=== PATIENT | male | born 1950 | race Caucasian/White ===

== ENCOUNTER 2017-05-06 21:16 | Inpatient (IN) | payer MEDICARE ==
[2017-05-06 21:38] LABS: #Eosinphils 0.2 thou/uL (0.0-0.7); #Lymphocytes 1.9 thou/uL (1.20-3.40); #Neutrophils 10.5 thou/uL (1.40-6.50); %Basophils 0.2 % (0.0-1.0); %Eosinophils 1.7 % (0.0-10.0); %Lymphocytes 13.7 % (21.0-51.0); %Neutrophils 77.5 % (42.0-75.0); Mean Corpuscular HGB CONC 33.7 g/dL (32.0-36.0); Mean Corpuscular Hemoglobin 31.7 pg (27.0-31.0); Mean Platelet Volume 7.4 fL (7.4-10.4); Platelet Count 226 thou/uL (130-400); RBC Distribution Width 12.3 % (11.5-14.5); Red Blood Cell (RBC) Count 5.05 mill/uL (4.70-6.10); White Blood Cell (WBC) Count 13.6 thou/uL (4.8-10.8)
[2017-05-06 21:43] LABS: INR-International Normal Ratio 1.2; Prothrombin Time 15.2 SEC (12.0-14.7)
[2017-05-06 21:44] LABS: Bilirubin Negative (Negative); Blood, Urine Moderate (Negative); Clarity CLOUDY (Clear); Glucose, Urine (Dipstick) Negative (Negative); Leukocyte Negative (Negative); Nitrite Negative (Negative); Protein, Urine (Dipstick) Trace mg/dL (Neg-Trace); Urobilinogen 0.2 mg/dL (0.2-1.0); pH, Urine 5.5 (5.0-9.0)
[2017-05-06 21:44] LABS: PTT 27.7 SEC (22.9-36.1)
[2017-05-06 21:46] LABS: Bacteria/HPF None Seen HPF (None Seen); RBC/HPF 21-50 HPF (0-3); Squamous Epithelial 0-3 HPF (0-3); WBC/HPF 0-3 HPF (0-3)
[2017-05-06] MEDS ORDERED: Ketorolac Tromethamine 30 MG/ML VIAL ONE (21:46)
[2017-05-06 21:49] LABS: Pathc Cast-AUWi Flag 4.47 (0-2.49)
--- NOTE | 2017-05-06 21:49 | RAD ---
AP VIEW CHEST: INDICATIONS: Emergency examination. Chest pain. COMPARISON: None. FINDINGS: The lungs are clear. The cardiomediastinal silhouette appears within normal limits. There are vascu lar calcifications involving the aortic arch. The patient is slightly rotated, limited the exam. No pleural effusion or pneumothorax is evident. No definite acute osseous abnormality is noted. There is a suggested healed deformity involving the right proximal humerus. IMPRESSION: No definite acute cardiopulmonary abnormality. POS: EMMIE
[2017-05-06 21:58] LABS: Hyaline Casts/LPF 4-6 HYALINE CAST LPF (0-3 Hyaline)
[2017-05-06 22:02] LABS: ALT (SGPT) 28 U/L (8-55); AST (SGOT) 36 U/L (5-34); Albumin 3.7 g/dL (3.4-4.8); Alkaline Phosphatase 89 U/L (40-150); Anion Gap 15 mmol/L (10-20); BUN (Urea Nitrogen) 29 mg/dL (8.4-25.7); Bilirubin, Total 1.1 mg/dL (0.2-1.2); Calc. Creatinine Clearance 0 mL/min (70-130); Calcium 8.8 mg/dL (7.8-10.44); Carbon Dioxide 21 mmol/L (23-31); Chloride 105 mmol/L (98-107); Estimated GFR-MDRD 40; Globulin 3.2 g/dL (2.4-3.5); Glucose 189 mg/dL (80-115); Potassium 4.5 mmol/L (3.5-5.1); Protein, Total 6.9 g/dL (5.8-8.1); Sodium 136 mmol/L (136-145)
[2017-05-06] MEDS ORDERED: Acetaminophen 1,000 MG in Premix Bag 1 BAG IVPB SCH (22:15)
--- NOTE | 2017-05-06 22:26 | CT ---
CT OF THE BRAIN WITHOUT CONTRAST: INDICATIONS: History of altered mental status and vomiting. COMPARISON: Prior exam dated 01/11/2016. FINDINGS: Post surgical change involving the right frontal skull and skull base appears similar. Encephalomala rommel involving the right frontal lobe is similar appearing. The small lacunar infarct involving the l eft cerebellar hemisphere is stable. Mild chronic small vessel white matter ischemic change is simil ar. No definite acute infarct, hemorrhage, or hydrocephalus is present. IMPRESSION: No acute intracranial abnormality demonstrated. POS: ADILENE
[2017-05-06] MEDS ORDERED: Azithromycin 250 MG TAB PO SCH (22:30)
[2017-05-07] MEDS ORDERED: Norepinephrine 8 MG/250 ML BAG IVPB PRN (00:40)
[2017-05-07] MEDS ORDERED: Hydrocortisone Sod Succ/PF 100 mg/2 ml Vial ONE (01:45)
[2017-05-07 01:46] LABS: Lactic Acid 3.4 mmol/L (0.5-2.2)
[2017-05-07] MEDS ORDERED: Ondansetron ODT 4 MG TAB SL PRN (02:24)
[2017-05-07] MEDS ORDERED: Ondansetron HCl/PF 4 MG/2 ML Vial IVP PRN ×2 (02:24→02:40)
[2017-05-07] MEDS ORDERED: Acetaminophen 325 MG TAB PO PRN ×2 (02:24→02:40)
[2017-05-07] MEDS ORDERED: Sodium Chloride 0.9% 1,000 ML IV SCH ×2 (02:24→04:30)
[2017-05-07] MEDS ORDERED: HYDROcodone/Acetaminophen 10/325 mg Tablet PO PRN (02:40)
[2017-05-07] MEDS ORDERED: Dextrose 50% Abboject 50 ML SYRINGE SLOW IVP PRN ×2 (02:40→14:10)
[2017-05-07] MEDS ORDERED: HYDROcodone/Acetaminophen 5/325 mg Tablet PO PRN (02:40)
[2017-05-07] MEDS ORDERED: Ondansetron ODT 4 MG TAB PO PRN (02:40)
[2017-05-07] MEDS ORDERED: Dextrose 5% in Water 1,000 ML IV PRN ×2 (02:40→14:10)
[2017-05-07 03:34] VITALS: BMI 31.2
[2017-05-07] MEDS: Enoxaparin Sodium 30 MG/0.3 ML SYRINGE SC SCH (04:02)
[2017-05-07] MEDS: HumaLOG 300 UNITS/3 ML VIAL SC PRN ×5 (04:07→21:59)
[2017-05-07] MEDS ORDERED: Norepinephrine 8 MG/0.9% NS 250 ML IVPB SCH (04:30)
[2017-05-07 04:32] LABS: #Eosinphils 0.2 thou/uL (0.0-0.7); #Lymphocytes 0.8 thou/uL (1.20-3.40); #Monocytes 0.7 thou/uL (0.11-0.59); #Neutrophils 8.2 thou/uL (1.40-6.50); %Basophils 0.2 % (0.0-1.0); %Eosinophils 1.5 % (0.0-10.0); %Lymphocytes 8.2 % (21.0-51.0); %Monocytes 7.1 % (0.0-10.0); Hemoglobin 14.2 g/dL (14.0-18.0); Mean Corpuscular HGB CONC 33.2 g/dL (32.0-36.0); Mean Corpuscular Hemoglobin 31.1 pg (27.0-31.0); Mean Corpuscular Volume 93.6 fl (80.0-94.0); Mean Platelet Volume 7.4 fL (7.4-10.4); Platelet Count 193 thou/uL (130-400); RBC Distribution Width 12.1 % (11.5-14.5); Red Blood Cell (RBC) Count 4.57 mill/uL (4.70-6.10); White Blood Cell (WBC) Count 9.9 thou/uL (4.8-10.8)
[2017-05-07 04:49] LABS: ALT (SGPT) 37 U/L (8-55); AST (SGOT) 60 U/L (5-34); Albumin 2.9 g/dL (3.4-4.8); Alkaline Phosphatase 80 U/L (40-150); Anion Gap 13 mmol/L (10-20); BUN (Urea Nitrogen) 30 mg/dL (8.4-25.7); Bilirubin, Total 1.5 mg/dL (0.2-1.2); Calc. Creatinine Clearance 58 mL/min (70-130); Calcium 7.4 mg/dL (7.8-10.44); Carbon Dioxide 15 mmol/L (23-31); Chloride 113 mmol/L (98-107); Estimated GFR-MDRD 42; Globulin 2.4 g/dL (2.4-3.5); Glucose 236 mg/dL (80-115); Potassium 5.2 mmol/L (3.5-5.1); Protein, Total 5.3 g/dL (5.8-8.1); Sodium 136 mmol/L (136-145)
[2017-05-07] MEDS: Levothyroxine Sodium 100 MCG TAB PO SCH (05:19)
[2017-05-07] MEDS: metroNIDAZOLE 500 MG in Premix Bag 1 BAG IVPB SCH ×4 (05:19→23:01)
[2017-05-07] MEDS ORDERED: Piperacillin/Tazobactam 3.375 GM in Sodium Chloride 0.9% 100 ML IVPB SCH (06:00)
--- NOTE | 2017-05-07 07:14 | HP ---
DATE OF ADMISSION: 05/07/2017 TIME OF SERVICE: 0100 CHIEF COMPLAINT: Altered mental status, fever and vomiting. HISTORY OF PRESENT ILLNESS: Mr. 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 The patient was in normal state of health, Sunday evening, 05/05/17, was in a normal state and eati ng dinner normally, on the morning of 05/06/2017, the patient became nauseated, over several hours eldridge d a few episodes of vomiting, unable to keep anything down. The patient was acting tired and took a nap on the couch, later that afternoon after the vomiting resolved and about 3-4 hours prior to admis cole, which was about 3-4 hours prior to presentation, the son went to check on his dad, and noticed that he was kind of staring off into space and not really responding. He became concerned and called EMS. ER noted that the patient was febrile up to 101.3, and after presentation was looking septic and was resuscitated per protocol. Despite getting adequate fluids, the patient had down trending blood pres sure and got a central venous line placed and was started on Levophed. We were called for transfer o f admission orders from the floor by over to the CCU. On my arrival, the patient is awake and alert. He is responsive. He is very hard of hearing, but do es respond appropriately. His son is at the bedside. Per the son, his last dose of regular medication was on 05/05/2017, he was unable to keep any medicat ions down on 05/06/2017, and thus the patient has been off of his oral medications for almost 48 hour s. He has had intermittent fevers here in the Emergency Department, but the vomiting has resolved. No G I bleeding, no chest pain, denies any shortness of breath. Currently, he is on 8 mcg of Levophed with a mean arterial pressure around 70-75. PAST MEDICAL HISTORY: 1. Hypothyroidism. 2. Diabetes mellitus type 2. PAST SURGICAL HISTORY: Include a pituitary tumor removal in 1983. He has been on levothyroxine and prednisone since. Liver transplant in 03/2014, Prograf was added. He had bilateral cataract replace ment. HOME MEDICATIONS: 1. Levothyroxine 100 mcg a day. 2. Metformin 1000 mg p.o. b.i.d. 3. Prednisone 5 mg a day. 4. Prograf 0.5 mg p.o. b.i.d. Again, please note the patient has been off of all these medications since late 05/04/2017 early 04/08. ALLERGIES: IODINE. FAMILY HISTORY: Negative for clotting or bleeding disorder, no immune dysfunction. SOCIAL HISTORY: Negative for habits x3. His son, Guero Skinner at [phone], is his next of kin and the surrogate decision maker should the patient become unable. At this time the current request is full code. REVIEW OF SYSTEMS: A 10-point review of systems was performed, negative for all other systems except stated per HPI. PHYSICAL EXAMINATION: VITAL SIGNS: Temperature current 101.1, temperature max 101.3, pulse on arrival was 123, now down to 101, blood pressure had trended down to 95/60s, currently at 128/71. Respiratory rate in the 30s, s atting 94-95% on room air. GENERAL: He is awake. He is alert. He is a chronically ill appearing, but in no acute distress. Laura laird is a well-developed, well-nourished white male. HEENT: Normocephalic, atraumatic. Pupils equal and reactive to light bilaterally, mucous membranes are moist. There are no visible lesions or thrush. The patient does look a little puffy. NECK: Supple, without lymphadenopathy, JVD, or thyromegaly. He has good range of motion. LUNGS: Clear to auscultation bilaterally. Good air movement. Excellent chest excursion symmetrical ly. He has no wheezes, no rales, no rhonchi. No prolonged expiratory phase. CARDIOVASCULAR: He is tachycardic, regular. Normal S1 and S2. I did not appreciate murmurs. ABDOMEN: Soft, it is nontender, nondistended. He has normoactive bowel sounds present in all 4 quad rants. There is no rebound, rigidity or guarding. EXTREMITIES: No cyanosis, no clubbing with trace bilateral lower extremity edema. He has 2+ at dors genie pedis and posterior tibial pulses as well as a bilateral radial pulses. SKIN: Otherwise, warm, moist and well perfused. He has no other rashes or lesions. MUSCULOSKELETAL: Normal to inspection. NEUROLOGIC: Alert, awake, he is very hard of hearing, but has normal speech. LABORATORY DATA: Sodium 136, potassium 4.0, chloride 105, bicarb 21, BUN 29, creatinine 1.72 with an unknown baseline. Calcium of 8.2, glucose 159. Liver functions normal. CBC showed a white count o f 13.6 with normal differential, hemoglobin 16.0, hematocrit of 47.4, platelet count 226,000. Urinal ysis showed moderate blood and 21-50 red cells after Quintanilla trauma. No bacteria or white blood cells. Flu screen was negative. Lactic acid elevated at 3.5. RADIOGRAPHIC STUDIES: Brain CT negative for acute intracranial abnormality and chest x-ray showed no acute cardiopulmonary disease. ASSESSMENT AND PLAN: 1. Adrenal crisis. The patient was doing fine on admission, but over the last several hours has had a decline in blood pressure. The patient is chronically steroid dependent and it was abruptly stopp ed. I think he might be in acute renal insufficiency. I have requested a 100 mg of IV Solu-Cortef, we will continue that q.8h. for 48 hours and transition back to p.o. prednisone. After getting the d ose, the patient was transferred to the ICU. His blood pressure improved and weaning off of Levophed was begun. 2. Hypothyroidism secondary to hypopituitarism on replacement, we will continue. 3. Diabetes mellitus type 2. We will hold metformin and use sliding scale insulin only. 4. Metabolic encephalopathy seems to have resolved. The patient is currently at baseline per the so n. 5. Septic shock: The patient certainly does meet septic shock criteria. He is febrile, tachycardic , hypotensive despite IV fluid resuscitation adequately and requiring pressors, he has evidence of in creased lactic acid. I think likely the patient had an acute gastroenteritis and became acutely dehy drated. Due to the physiologic stress, the patient needs to be on stress dose steroids and had not b een started and, in fact, has been off of all of the steroids. Therefore, I think getting him on Krys u-Cortef will help profoundly. I will monitor his response.
--- NOTE | 2017-05-07 08:08 | RAD ---
RADIOGRAPH CHEST 1 VIEW: DATE: 05/07/17. TIME: 12:26 a.m. HISTORY: A 67-year-old male status post central line placement. COMPARISON: 05/06/17, 9:27 p.m. FINDINGS: There is no air space density, pulmonary edema, or pneumothorax. The lateral costophrenic angles are sharp. There is a new vertically descending central vascular catheter from the right neck, with dis nadege tip overlying the upper portion of the SVC. IMPRESSION: 1. No acute pulmonary findings. 2. Interval placement of right-sided central vascular catheter without pneumothorax. anahi [] POS: ADILENE
[2017-05-07] MEDS ORDERED: Vancomycin HCl 1 GM in Premix Bag 1 BAG IVPB SCH (09:00)
[2017-05-07] MEDS ORDERED: Famotidine 20 MG TAB PO SCH (09:00)
[2017-05-07] MEDS: Tacrolimus 0.5 MG CAP PO SCH ×2 (09:01→21:58)
--- NOTE | 2017-05-07 11:25 | CON ---
DATE OF CONSULTATION: 05/07/2017 SERVICE: Pulmonary Medicine REASON FOR CONSULTATION: Agitation. HISTORY OF PRESENT ILLNESS: The patient is a 67-year-old white male with past medical history signif icant for liver transplantation. He was in his usual state of health when he ultimately developed in creasing altered mentation. He had a fever. He presented to the Emergency Department, but did not d emonstrate any significant focalizing symptoms that would be suggestive of where his infection is com ing from. He was started on some empiric antibiotics. He got 5 liters of fluid and was initiated on some Levophed. Overnight, this was titrated off. His urine output picked up. Because of severe de afness, he cannot understand absolutely anything that I am asking him. As such, I cannot obtain any additional elements of the history and everything else is obtained from the medical record. PAST MEDICAL HISTORY: 1. Type 2 diabetes mellitus. 2. Hypothyroidism. PAST SURGICAL HISTORY: 1. Liver transplantation in 2013. 2. Bilateral cataract replacement. 3. Pituitary tumor excision in 1983. FAMILY HISTORY: Noncontributory. SOCIAL HISTORY: Negative for alcohol, tobacco or illicit drug use. ALLERGIES: IODINE. MEDICATIONS: List of his inpatient medications were reviewed. REVIEW OF SYSTEMS: This could not be obtained as the patient is severely . Even with his Hexadite aids, and with me talking very loudly, we cannot have any kind of a conversation. PHYSICAL EXAMINATION: VITAL SIGNS: Afebrile with a T-max of 100.3 on presentation. In the Emergency Department, he was 10 1.3, pulse 81, blood pressure 83/55, respirations 22, saturation 96% on room air. GENERAL: The patient is awake and alert. He is in no apparent distress. LUNGS: Excellent air entry. There is some dependent crackles which are minimal. HEART: Normal rate, regular. ABDOMEN: Soft, nontender, nondistended. Bowel sounds are positive. MUSCULOSKELETAL: No cyanosis or clubbing. There is no pitting in the bilateral lower extremities. NEUROLOGIC: Grossly nonfocal. LABORATORY DATA: WBC 9.9 and down trending, hemoglobin 14.2, platelets 193,000. Neutrophil count is 83% and gently up trending. INR 1.2. Creatinine is down trending to 1.63, BUN 30. Bicarb 15 with improving anion gap to 13. Chloride 113, sodium 136, potassium is 5.2 this morning. Lactate was dec reasing to 3.4, cortisol 76.4 following administration of steroids. Urinalysis is unremarkable. Inf luenza A and B is unremarkable. Blood cultures x2 are negative to date. IMAGING: Chest x-ray demonstrates no acute cardiopulmonary abnormality. There is a right-sided IJ c entral venous catheter in decent position. No evidence of pneumothorax is identified. Decreased ana g volumes accentuated interstitial markings. CT brain demonstrates no acute intracranial abnormality. ASSESSMENT: 1. Septic shock. 2. Metabolic encephalopathy, resolved. 3. Adrenal crisis. 4. Hypothyroidism. PLAN: We will continue our stress doses of steroids, and empiric antibiotics while we await culture results. He is not having any focalizing symptoms that we are aware of. As such, empiric therapy wi ll be continued. From my perspective, he is stable for transition out of the ICU to the medical unit where we will continue our close observation. We will work on mobilizing the patient through the da y. 70 minutes of time was spent where I was immediately available to the patient.
[2017-05-07] MEDS: Hydrocortisone Sod Succ/PF 100 mg/2 ml Vial IVP SCH ×2 (11:39→17:48)
--- NOTE | 2017-05-07 14:08 | PDOC.EVN ---
Event Note - Event Note Event Note: pt seen in ICU. To be transferred to Tele today. doing better. continue supportive care. on stress dose steroids.
[2017-05-08] MEDS: Enoxaparin Sodium 30 MG/0.3 ML SYRINGE SC SCH ×2 (03:28→20:10)
[2017-05-08] MEDS: Hydrocortisone Sod Succ/PF 100 mg/2 ml Vial IVP SCH (03:30)
[2017-05-08 04:48] LABS: #Monocytes 0.6 thou/uL (0.11-0.59); #Neutrophils 8.2 thou/uL (1.40-6.50); %Basophils 0.1 % (0.0-1.0); %Eosinophils 0.1 % (0.0-10.0); %Lymphocytes 10.4 % (21.0-51.0); %Monocytes 5.9 % (0.0-10.0); %Neutrophils 83.4 % (42.0-75.0); Hemoglobin 11.6 g/dL (14.0-18.0); Mean Corpuscular HGB CONC 34.3 g/dL (32.0-36.0); Mean Corpuscular Hemoglobin 32.1 pg (27.0-31.0); Mean Corpuscular Volume 93.6 fl (80.0-94.0); Mean Platelet Volume 7.9 fL (7.4-10.4); Platelet Count 132 thou/uL (130-400); RBC Distribution Width 12.3 % (11.5-14.5); Red Blood Cell (RBC) Count 3.62 mill/uL (4.70-6.10); White Blood Cell (WBC) Count 9.9 thou/uL (4.8-10.8)
[2017-05-08 04:51] LABS: Anion Gap 11 mmol/L (10-20); BUN (Urea Nitrogen) 25 mg/dL (8.4-25.7); Calc. Creatinine Clearance 72 mL/min (70-130); Calcium 7.6 mg/dL (7.8-10.44); Carbon Dioxide 20 mmol/L (23-31); Chloride 112 mmol/L (98-107); Estimated GFR-MDRD 55; Glucose 175 mg/dL (80-115); Potassium 3.6 mmol/L (3.5-5.1); Sodium 139 mmol/L (136-145)
[2017-05-08] MEDS: HumaLOG 300 UNITS/3 ML VIAL SC PRN ×5 (05:55→20:13)
[2017-05-08] MEDS: metroNIDAZOLE 500 MG in Premix Bag 1 BAG IVPB SCH ×3 (05:55→18:23)
[2017-05-08] MEDS: Levothyroxine Sodium 100 MCG TAB PO SCH (05:55)
[2017-05-08] MEDS ORDERED: Potassium Chloride 20 MEQ TAB PO SCH (09:00)
--- NOTE | 2017-05-08 09:12 | PRG ---
DATE OF SERVICE: 05/08/2017 SERVICE: Pulmonary Medicine. INTERVAL HISTORY: The patient is doing fantastic. From a respiratory and cardiovascular standpoint, he is doing very well. He is on room air, and his blood pressure is doing fantastic. He has no com plaints this morning. No fevers, chills, nausea or vomiting, diarrhea or chest discomfort. It took considerable amount of effort in order to mime all of these things because even with patient's functi oning hearing aids in, he cannot hear anything. PHYSICAL EXAMINATION: VITAL SIGNS: Afebrile, pulse 78, blood pressure 128/65, respirations 19, saturation 97% on room air. GENERAL: The patient is awake and alert, in no apparent distress. LUNGS: Decent air entry with no prolonged expiratory phase, wheezing, rhonchi or crackles. HEART: Normal rate, regular. ABDOMEN: Soft, nontender, and nondistended. Bowel sounds are positive. MUSCULOSKELETAL: No cyanosis or clubbing. No pitting in the bilateral lower extremities. NEUROLOGIC: Grossly nonfocal. LABORATORY DATA: WBC 9.9, hemoglobin 11.6, platelets 132,000. Creatinine 1.31 and gently down trend ing. Basic metabolic profile is otherwise unremarkable, potassium 3.6. TSH is 0.0725. Influenza A and B is negative. Blood cultures x2 and urine culture negative to date. ASSESSMENT: 1. Septic shock. 2. Metabolic encephalopathy, resolved. 3. Adrenal crisis, resolved. 4. Hypothyroidism. PLAN: The TSH is suppressed suggesting that he may be over replaced with his thyroid hormone. It co uld also be a function of his acute illness. As such, this needs to be reevaluated in the outpatient setting. At this point, I do not think we need to modify any of his medications. He has cleared hi s inflammatory profile. I will deescalate his steroids and put him back on his home steroid medicati ons. We will continue our current empiric antibiotics while the urine and blood cultures resolve. F rom my perspective, he is stable for transition out of the ICU.
[2017-05-08] MEDS ORDERED: predniSONE 20 MG TAB PO SCH (09:15)
[2017-05-08] MEDS: Tacrolimus 0.5 MG CAP PO SCH ×2 (09:17→20:10)
--- NOTE | 2017-05-08 16:10 | PDOC.PN ---
- Subjective Encounter Start Date: 05/08/17 Encounter Start Time: 07:30 Patient is seen today, weak but alert, very heard of hearing. No SOb or Chest pain. - Objective Resuscitation Status: Resuscitation Status FULL:Full Resuscitation MAR Reviewed: Yes Vital Signs & Weight: Vital Signs (12 hours) Temp Pulse Resp Pulse Ox 05/08/17 12:00 98.1 F 05/08/17 08:00 98.2 F 76 19 97 Weight Weight 201 lb 0.985 oz Most Recent Monitor Data Heart Rate from ECG 80 NIBP 120/75 NIBP BP-Mean 94 Respiration from ECG 22 SpO2 97 I&O: 05/07/17 05/08/17 05/09/17 06:59 06:59 06:59 Intake Total 425 1643 650 Output Total 120 850 150 Balance 305 793 500 Result Diagrams: 05/08/17 03:22 05/08/17 03:22 Additional Labs: Accuchecks 05/08/17 05/08/17 05/07/17 07:56 05:50 21:57 POC Glucose 182 H 188 H 214 H 05/07/17 16:29 POC Glucose 247 H Radiology Reviewed by me: Yes EKG Reviewed by me: Yes Phys Exam - Physical Examination HEENT: PERRLA (Deafness both ears), oral pharynx no lesions Respiratory: no wheezing, no rales Cardiovascular: RRR, no significant murmur Gastrointestinal: soft, non-tender Musculoskeletal: no edema, pulses present Neurological: non-focal, normal sensation Psychiatric: normal affect, A&O x 3 Skin: no rash Dx/Plan (1) Septic shock Code(s): A41.9 - SEPSIS, UNSPECIFIED ORGANISM; R65.21 - SEVERE SEPSIS WITH SEPTIC SHOCK Status: Acute (2) Adrenal crisis syndrome Code(s): E27.2 - ADDISONIAN CRISIS Status: Acute (3) Hypotension Status: Acute (4) Hypopituitarism after procedure Code(s): E89.3 - POSTPROCEDURAL HYPOPITUITARISM Status: Acute - Plan cont current plan of care, continue antibiotics, PT/OT, incentive spirometry Plan: Patient in Adrenal Crisis, is Improving with IV steroids, pt Blood pressures more [place]. Pt has No other source of Sepsis, Will continue IV antibiotics prophylactically. Hypopituitarism , stbal with levothyroxin. GI prophylaxis with PPI DVT prophylaxis with Lovenox. Nephrology following for JERROD, Critical care on board. Will continue to Follow recommedations. - Discharge Day Encounter end time: 08:00 Review of Systems - Review of Systems Constitutional: weakness, malaise. negative: fever, chills, sweats, other Eyes: negative: Pain, Vision Change, Conjunctivae Inflammation, Eyelid Inflammation, Redness, Other ENT: negative: Ear Pain, Ear Discharge, Nose Pain, Nose Discharge, Nose Congestion, Mouth Pain, Mouth Swelling, Throat Pain, Throat Swelling, Other Respiratory: negative: Cough, Dry, Shortness of Breath, Hemoptysis, SOB with Excertion, Pleuritic Pain, Sputum, Wheezing Cardiovascular: negative: chest pain, palpitations, orthopnea, paroxysmal nocturnal dyspnea, edema, light headedness, other Gastrointestinal: negative: Nausea, Vomiting, Abdominal Pain, Diarrhea, Constipation, Melena, Hematochezia, Other Genitourinary: negative: Dysuria, Frequency, Incontinence, Hematuria, Retention , Other Skin: negative: Rash, Lesions, Jonny, Bruising, Other Neurological: negative: Weakness, Numbness, Incoordination, Change in Speech, Confusion, Seizures, Other - Medications/Allergies Allergies/Adverse Reactions: Allergies Allergy/AdvReac Type Severity Reaction Status Date / Time iodine Allergy Verified 05/06/17 22:08 Medications: Current Medications Acetaminophen (Tylenol) 650 mg PO Q4H PRN PRN Reason: Headache/Fever or Pain Hydrocodone Bitart/Acetaminophen ([place] 5/325) 1 tab PO Q4H PRN PRN Reason: Moderate Pain (4-6) Dextrose/Water (Dextrose 50%) 25 gm SLOW IVP PRN PRN PRN Reason: Hypoglycemia Enoxaparin Sodium (Lovenox) 30 mg SC 2100 ROZ Glucagon (Glucagon) 1 mg IM PRN PRN PRN Reason: Hypoglycemia Ciprofloxacin/Dextrose 400 mg/ (Device) 200 mls @ 200 mls/hr IVPB Q12HR ROZ Last Admin: 05/08/17 09:19 Dose: 200 mls Metronidazole 500 mg/ Device 100 mls @ 100 mls/hr IVPB Q6HR ROZ Last Admin: 05/08/17 11:50 Dose: 100 mls Dextrose/Water (D5w) 1,000 mls @ 0 mls/hr IV .Q0M PRN; As Directed PRN Reason: Hypoglycemia Insulin Human Lispro (Humalog) 0 units SC .MODERATE SLIDING SC PRN PRN Reason: Moderate Correctional Scale Last Admin: 05/08/17 11:45 Dose: 4 unit Levothyroxine Sodium (Synthroid) 100 mcg PO 0600 [facility] Last Admin: 05/08/17 05:55 Dose: 100 mcg Ondansetron HCl (Zofran Odt) 4 mg PO Q6H PRN PRN Reason: Nausea/Vomiting Ondansetron HCl (Zofran) 4 mg IVP Q6H PRN PRN Reason: Nausea/Vomiting Prednisone (Prednisone) 20 mg PO QAM-WM [facility] Sodium Chloride (Flush - Normal Saline) 10 ml IVF Q12HR [facility] Last Admin: 05/08/17 09:17 Dose: 10 ml Sodium Chloride (Flush - Normal Saline) 10 ml IVF PRN PRN PRN Reason: Saline Flush Tacrolimus (Prograf) 0.5 mg PO BID [facility] Last Admin: 05/08/17 09:17 Dose: 0.5 mg
[2017-05-09] MEDS: metroNIDAZOLE 500 MG in Premix Bag 1 BAG IVPB SCH ×4 (00:26→17:46)
[2017-05-09] MEDS: Levothyroxine Sodium 100 MCG TAB PO SCH (05:34)
[2017-05-09] MEDS: predniSONE 20 MG TAB PO SCH (09:38)
[2017-05-09] MEDS: Tacrolimus 0.5 MG CAP PO SCH ×2 (09:44→20:10)
[2017-05-09] MEDS: HumaLOG 300 UNITS/3 ML VIAL SC PRN ×3 (12:43→21:32)
[2017-05-09] MEDS: Enoxaparin Sodium 30 MG/0.3 ML SYRINGE SC SCH (20:13)
[2017-05-10] MEDS: metroNIDAZOLE 500 MG in Premix Bag 1 BAG IVPB SCH ×3 (00:27→11:26)
--- NOTE | 2017-05-10 00:52 | PRG ---
DATE OF SERVICE: 05/09/2017 SERVICE: Pulmonary Medicine. INTERVAL HISTORY: The patient is doing great from a respiratory standpoint. He currently denies any shortness of breath, fevers, or chills. He is otherwise returning to his usual state of health. He had run into any blood pressure issues since being under the ICU. PHYSICAL EXAMINATION: VITAL SIGNS: Afebrile, pulse 71, blood pressure 120/74, respirations 22, saturation 96% on room air. GENERAL: Patient is awake, alert, in no apparent distress. LUNGS: Decent air entry. There is no prolonged expiratory phase, wheezing, rhonchi, or crackles. HEART: Normal rate, regular. ABDOMEN: Soft, nontender, nondistended, bowel sounds positive. MUSCULOSKELETAL: No cyanosis or clubbing. No pitting in the bilateral lower extremities. NEUROLOGIC: Grossly nonfocal. LABORATORY DATA: WBC 9.9, hemoglobin 11.6 and dropping. Platelets 132,000. INR 1.2. Blood sugars ranged from 164 to 313. Urinalysis is unremarkable. All culture results including urine culture and blood culture x2 are negative to date. Influenza A and B are both negative. ASSESSMENT: 1. Septic shock, resolved. 2. Adrenal crisis, more likely. 3. Metabolic encephalopathy, resolved. 4. Hypothyroidism. PLAN: The patient is currently stable for transition out of the hospital from a purely respiratory p erspective. I am not convinced that antibiotics were absolutely necessary, moving forward. Empirica lly treating him for a full course, it is reasonable, but we can likely deescalate rapidly. We certa inly do not need to treat any underlying lung issues. He has no further requirements for inpatient P monary Critical Care opinion. As such, we will sign off. Please call with additional questions or concerns moving forward.
[2017-05-10] MEDS: Levothyroxine Sodium 100 MCG TAB PO SCH (06:16)
[2017-05-10 07:57] VITALS: BP 151/77; TEMP 98.6
--- NOTE | 2017-05-10 08:32 | PDOC.PN ---
- Subjective Encounter Start Date: 05/09/17 Encounter Start Time: 08:00 Pt is selvin today, walking in his room, he is hard of hearing, No other concenr snoted. Explained we will wait on critical to ok to go home. - Objective Resuscitation Status: Resuscitation Status FULL:Full Resuscitation MAR Reviewed: Yes Vital Signs & Weight: Vital Signs (12 hours) Temp Pulse Resp BP Pulse Ox 05/10/17 07:56 98.6 F 69 20 151/77 H 96 Weight Weight 204 lb 12.8 oz Most Recent Monitor Data Heart Rate from ECG 74 NIBP 110/70 NIBP BP-Mean 84 Respiration from ECG 19 SpO2 100 I&O: 05/09/17 05/10/17 05/11/17 06:59 06:59 06:59 Intake Total 1010 300 Output Total 200 Balance 810 300 Result Diagrams: 05/08/17 03:22 05/08/17 03:22 Additional Labs: Accuchecks 05/10/17 05/09/17 05/09/17 05:17 21:30 16:22 POC Glucose 120 H 242 H 271 H 05/09/17 11:27 POC Glucose 184 H Radiology Reviewed by me: Yes EKG Reviewed by me: Yes Phys Exam - Physical Examination HEENT: PERRLA, moist MMs, oral pharynx no lesions Neck: no nodes, no JVD Respiratory: no wheezing Cardiovascular: RRR Gastrointestinal: soft, non-tender Dx/Plan (1) Septic shock Code(s): A41.9 - SEPSIS, UNSPECIFIED ORGANISM; R65.21 - SEVERE SEPSIS WITH SEPTIC SHOCK Status: Resolved (2) Adrenal crisis syndrome Code(s): E27.2 - ADDISONIAN CRISIS Status: Resolved (3) Hypotension Status: Resolved (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 Plan: Patient in Adrenal Crisis, is Improving with IV steroids, pt Blood pressures more [place]. Pt has No other source of Sepsis, Will continue IV antibiotics prophylactically until Critical care rules out. Hypopituitarism , stbal with levothyroxin. GI prophylaxis with PPI DVT prophylaxis with Lovenox. Nephrology following for JERROD, Critical care on board. Will continue to Follow recommedations, stbale today possible go home tomorrow.. - Discharge Day Encounter end time: 08:30 Review of Systems - Review of Systems Constitutional: weakness Eyes: negative: Pain, Vision Change, Conjunctivae Inflammation, Eyelid Inflammation, Redness, Other ENT: negative: Ear Pain, Ear Discharge, Nose Pain, Nose Discharge, Nose Congestion, Mouth Pain, Mouth Swelling, Throat Pain, Throat Swelling, Other Respiratory: negative: Cough, Dry, Shortness of Breath, Hemoptysis, SOB with Excertion, Pleuritic Pain, Sputum, Wheezing Cardiovascular: negative: chest pain, palpitations, orthopnea, paroxysmal nocturnal dyspnea, edema, light headedness, other Gastrointestinal: negative: Nausea, Vomiting, Abdominal Pain, Diarrhea, Constipation, Melena, Hematochezia, Other Genitourinary: negative: Dysuria, Frequency, Incontinence, Hematuria, Retention , Other Musculoskeletal: negative: Neck Pain, Shoulder Pain, Arm Pain, Back Pain, Hand Pain, Leg Pain, Foot Pain, Other Skin: negative: Rash, Lesions, Jonny, Bruising, Other - Medications/Allergies Allergies/Adverse Reactions: Allergies Allergy/AdvReac Type Severity Reaction Status Date / Time iodine Allergy Verified 05/06/17 22:08 Medications: Current Medications Acetaminophen (Tylenol) 650 mg PO Q4H PRN PRN Reason: Headache/Fever or Pain Hydrocodone Bitart/Acetaminophen ([place] 5/325) 1 tab PO Q4H PRN PRN Reason: Moderate Pain (4-6) Dextrose/Water (Dextrose 50%) 25 gm SLOW IVP PRN PRN PRN Reason: Hypoglycemia Enoxaparin Sodium (Lovenox) 30 mg SC 2100 [facility] Last Admin: 05/09/17 20:13 Dose: 30 mg Glucagon (Glucagon) 1 mg IM PRN PRN PRN Reason: Hypoglycemia Ciprofloxacin/Dextrose 400 mg/ (Device) 200 mls @ 200 mls/hr IVPB Q12HR [facility] Last Admin: 05/09/17 20:11 Dose: 200 mls Metronidazole 500 mg/ Device 100 mls @ 100 mls/hr IVPB Q6HR [facility] Last Admin: 05/10/17 06:16 Dose: 100 mls Dextrose/Water (D5w) 1,000 mls @ 0 mls/hr IV .Q0M PRN; As Directed PRN Reason: Hypoglycemia Insulin Human Lispro (Humalog) 0 units SC .MODERATE SLIDING SC PRN PRN Reason: Moderate Correctional Scale Last Admin: 05/09/17 21:32 Dose: 4 unit Levothyroxine Sodium (Synthroid) 100 mcg PO 0600 [facility] Last Admin: 05/10/17 06:16 Dose: 100 mcg Ondansetron HCl (Zofran Odt) 4 mg PO Q6H PRN PRN Reason: Nausea/Vomiting Ondansetron HCl (Zofran) 4 mg IVP Q6H PRN PRN Reason: Nausea/Vomiting Prednisone (Prednisone) 20 mg PO QAM-WM [facility] Last Admin: 05/09/17 09:38 Dose: 20 mg Sodium Chloride (Flush - Normal Saline) 10 ml IVF Q12HR [facility] Last Admin: 05/09/17 20:14 Dose: 10 ml Sodium Chloride (Flush - Normal Saline) 10 ml IVF PRN PRN PRN Reason: Saline Flush Tacrolimus (Prograf) 0.5 mg PO BID [facility] Last Admin: 05/09/17 20:10 Dose: 0.5 mg
[2017-05-10] MEDS: Tacrolimus 0.5 MG CAP PO SCH (09:05)
[2017-05-10] MEDS: predniSONE 20 MG TAB PO SCH (09:05)
--- NOTE | 2017-05-10 12:16 | DIS ---
DATE OF ADMISSION: 05/07/2017 DATE OF DISCHARGE: 05/10/2017 ADMITTING DIAGNOSIS: Acute septic shock. DISCHARGE DIAGNOSIS: Acute septic shock. SECONDARY DIAGNOSES: 1. Adrenal crisis. 2. Hypothyroidism. 3. Type 2 diabetes mellitus. 4. Metabolic encephalopathy. CONSULTANTS INVOLVED IN THE CARE: Dr. Bj Coughlin from Critical Care. HISTORY OF PRESENT ILLNESS AND HOSPITAL COURSE: In brief, this is a 67-year-old white male with a pa st medical history significant for liver transplantation, was in his usual state of health when he de veloped increasing altered mental status associated with fever. The patient presented to the ER and did not demonstrate any significant localizing symptoms suggestive of any particular infection, but h is blood pressures were very low to the point that the patient was started on stress dose steroids an d empiric antibiotics. He was also started on Levophed because of the drop in the blood pressures ev en after giving fluids. The patient received 5 liters of IV fluids and later on his Levophed was tit rated off. He had no source of infection and the chest x-ray was normal. His UA was normal. 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 The karine ent was initially started on Solu-Medrol 40 mg IV q.6 hours, but later on as he improved remarkably w ell with no evidence of fever, no shortness of breath; he was transferred to the floor and was monito red for another day. Since he was on steroids for only one day, Dr. Lorenzo decided to restart him ba ck on his home dose at discharge. The patient's steroids were back on his home dose. On the day of discharge, he was stable. On the day of discharge, he did not appear to be in any acute distress, bu t because of his unknown source of fever and immunocompromised state, he was started on ciprofloxacin just to complete a 5-day course. The patient is discharged home in stable condition. PHYSICAL EXAMINATION: VITAL SIGNS: Blood pressures are 151/77, heart rate is 69, respiratory rate is 20, saturation 96%. GENERAL: The patient is moderately built and well-nourished, does not appear to be in acute distress . CARDIOVASCULAR: S1 and S2 normal. No murmurs, rubs, or gallops. LUNGS: Bilateral air entry was equal. No wheezing, no crackles. ABDOMEN: Soft, nontender. No guarding or rebound tenderness. Bowel sounds are normal. MUSCULOSKELETAL: No calf tenderness. No pedal edema. No joint tenderness. No joint swelling. SKIN: No cyanosis, no erythema, no rash, no pallor. ACUTE CARE ASSISTANT: Cranial nerve examination II through XII intact. No focal deficits were noted. LABORATORY DATA: WBC 9.9, hemoglobin is 11.6, hematocrit is 33.9, platelets are 132. Sodium is 132, potassium is 3.6. Blood sugar 133. DISCHARGE MEDICATIONS: 1. Cipro 250 mg p.o. b.i.d. for 5 days. 2. Levothyroxine 100 mcg daily. 3. Metformin 500 mg twice daily. 4. Prednisolone 5 mg p.o. daily home dose. 5. Tacrolimus 0.5 mg capsule b.i.d. DISCHARGE INSTRUCTIONS: Continue activity as tolerated. Advised to follow up with primary care phys ician in 1-2 weeks. Advised to follow up with primary care physician in 1 week and if the patient de velops any further weakness or lethargy or low blood pressures, advised to return back to the ER imme diately. I spent 35 minutes of this patient on the day of discharge.
--- NOTE | 2017-05-12 16:05 | EKG ---
Test Reason : Blood Pressure : / mmHG Vent. Rate : 123 BPM Atrial Rate : 123 BPM P-R Int : 138 ms QRS Dur : 074 ms QT Int : 320 ms P-R-T Axes : 025 -49 075 degrees QTc Int : 458 ms Sinus tachycardia Left axis deviation Inferior infarct , age undetermined Anterior infarct , age undetermined Abnormal ECG Confirmed by FABRIZIO TRAN, HUSSEIN Garcia ([id number]), development editor SARAH NÚÑEZ ([id number]) on 05/12/2017 4:05:00 PM Referred By: Confirmed By:HUSSEIN DINH MD
== END 2017-05-10 14:24 | disposition home or self-care (01) | DRG 871 ==
LOC: ERS 21:16 → ERHOLD 23:09 → CCU 05-07 02:05 → T4-A 05-08 22:16
PROVIDERS: ADMIT Internal Medicine Infectious Disease; ATTEND Internal Medicine Infectious Disease
PROC: 02HV33Z Insertion of Infusion Device into Superior Vena Cava, Percutaneous Approach (ICD-10-PCS; principal; 2017-05-06)
PROC: B548ZZA Ultrasonography of Superior Vena Cava, Guidance (ICD-10-PCS; 2017-05-06)
DX: A41.9 Sepsis, unspecified organism (principal); G93.41 Metabolic encephalopathy; R65.21 Severe sepsis with septic shock; N17.9 Acute kidney failure, unspecified; E27.2 Addisonian crisis; Z94.4 Liver transplant status; E11.9 Type 2 diabetes mellitus without complications; Z79.899 Other long term (current) drug therapy; H91.93 Unspecified hearing loss, bilateral; E89.3 Postprocedural hypopituitarism; E86.0 Dehydration; E03.8 Other specified hypothyroidism
CPT/HCPCS: 36415; 36416; 36556; 51702; 70450; 71010; 71045; 80048; 80053; 81003; 81015; 82533; 83605; 84443; 85025; 85610; 85730; 87040; 87086; 93005; 96361; 96365; 96374; 96375; A4216; G8978-GP-CJ; G8979-GP-CJ; G8980-GP-CJ; G8987-GO-CI; G8988-GO-CI; G8989-GO-CI; J0131; J0696; J0744; J1650; J1720; J1885; J7506; J7507